=== PATIENT | female | born 1980 | race Caucasian/White ===

== ENCOUNTER 2016-08-01 06:18 | Outpatient (CLI) | payer BC ==
[~2016-08-01] VITALS: Ht 160 cm; Wt 100.2 kg
[2016-08-01] VITALS (7 sets, daily range): BP systolic 116–140; BP diastolic 70–91
[~2016-08-01 06:18] MED LIST: BENADRYL25 MG PO; ENDOCET 5-3251 EACH PO; IBUPROFEN800 MG PO; NOHOMEMEDS; PRENATAL TABLE1 EAC3 PO
[2016-08-01 07:05] LABS: EOSINOPHIL (%) 0 % (0-5); HEMATOCRIT 37.7 % (36.0-46.0); IMMATURE GRANULOCYTE (%) 0.6 % (0.0-0.7); IMMATURE GRANULOCYTE COUNT 0.1 K/uL; INSTRUMENT ABS NEUTROPHIL CT 18.7 K/uL; LYMPHOCYTE COUNT 0.9 K/uL (1.0-2.8); MCH 28.5 PG (29.0-34.0); MCHC 32.6 G/DL (30.0-36.0); MCV 87.3 FL (83-99); MEAN PLAT.VOLUME 12.7 uM^3 (9.5-12.4); MONOCYTE (%) 6.7 % (3-12); MONOCYTE COUNT 1.4 K/uL (0-0.8); NEUTROPHIL (%) 88.4 % (45-76); NEUTROPHIL COUNT 18.7 K/uL (1.8-6.4); PLATELET COUNT 265 K/uL (156-360); RBC DIS.WIDTH-CV 12.6 % (11.8-14.6); RBC DIS.WIDTH-SD 39.8 % (39-53); RED BLOOD COUNT 4.32 M/uL (3.80-5.20); WHITE BLOOD COUNT 21.2 K/uL (4.1-10.2)
[2016-08-01 07:38] LABS: ALKALINE PHOSPHATASE 326 IU/L (3-129); AMYLASE 48 IU/L (1-118); ANION GAP 8 MEQ/L (2-14); CHLORIDE 103 MEQ/L (99-109); GFR ESTIMATE (CALCULATED) > 59 mL/min/; GLUCOSE 109 mg/dL (70-99); LIPASE 34 U/L (1.0-51.0); POTASSIUM 4.2 MEQ/L (3.7-5.4); SAMPLE HEMOLYSIS CHECK 0; SAMPLE ICTERIC CHECK 0; SAMPLE LIPEMIA CHECK 0; SODIUM 130 MEQ/L (136-147); UREA NITROGEN (BUN) 14 mg/dL (9-23)
[2016-08-01 07:40] LABS: TOTAL BILIRUBIN 0.3 MG/DL (0.0-1.0)
[2016-08-01 08:40] LABS: ADD MIUA? YES; BILIRUBIN NEGATIVE; BLOOD NEGATIVE; COLOR YELLOW ((YELLOW)); GLUCOSE (STRIP) NEGATIVE; KETONES NEGATIVE; LEUKOCYTES NEGATIVE; NITRITE NEGATIVE; PROTEIN (STRIP) NEGATIVE; SPECIFIC GRAVITY 1.021 (1.000-1.030); UROBILINOGEN 0.2 MG/DL (0.2-1.0)
[2016-08-01 08:56] LABS: BACTERIA NONE SEEN /HPF; EPITHELIAL CELLS 1+ /HPF; MUCUS TRACE /LPF; RED BLOOD CELLS 0-5 /HPF (0-5); UCUL ADDED? NO; WHITE BLOOD CELLS 0-5 /HPF (0-5)
[2016-08-01 09:02] LABS: AMPHETAMINES QUANT VALUE 0 NG/ML; BARBITUATES QUANT VALUE 0 NG/ML; BENZODIAZEPINES QUANT VALUE 0 NG/ML; BENZODIAZEPINES, URINE SCREEN Negative (200 ng/mL); MARIJUANA QUANT VALUE 0 NG/ML; OPIATES QUANTITATIVE VALUE 0 NG/ML; PHENCYCLIDINE QUANT VALUE 0 NG/ML
[2016-08-01 15:02] LABS: INFLUENZA A VIRAL ANTIGEN NEGATIVE; INFLUENZA B VIRAL ANTIGEN NEGATIVE
[2016-08-02] VITALS (7 sets, daily range): BP systolic 111–125; BP diastolic 68–81
[2016-08-02 08:41] LABS: ALKALINE PHOSPHATASE 248 IU/L (3-129); ANION GAP 9 MEQ/L (2-14); CHLORIDE 106 MEQ/L (99-109); GFR ESTIMATE (CALCULATED) > 59 mL/min/; GLUCOSE 89 mg/dL (70-99); POTASSIUM 4.2 MEQ/L (3.7-5.4); SAMPLE HEMOLYSIS CHECK 0; SAMPLE ICTERIC CHECK 0; SAMPLE LIPEMIA CHECK 0; TOTAL BILIRUBIN 0.3 MG/DL (0.0-1.0); UREA NITROGEN (BUN) 10 mg/dL (9-23)
[2016-08-02 08:49] LABS: SODIUM 139 MEQ/L (136-147)
[2016-08-02 09:05] LABS: EOSINOPHIL (%) 0.1 % (0-5); HEMATOCRIT 35.3 % (36.0-46.0); IMMATURE GRANULOCYTE (%) 0.6 % (0.0-0.7); IMMATURE GRANULOCYTE COUNT 0.1 K/uL; INSTRUMENT ABS NEUTROPHIL CT 8.7 K/uL; LYMPHOCYTE COUNT 1.8 K/uL (1.0-2.8); MCH 28.1 PG (29.0-34.0); MCHC 31.7 G/DL (30.0-36.0); MCV 88.5 FL (83-99); MEAN PLAT.VOLUME 12.6 uM^3 (9.5-12.4); MONOCYTE (%) 5.9 % (3-12); MONOCYTE COUNT 0.7 K/uL (0-0.8); NEUTROPHIL (%) 77.4 % (45-76); NEUTROPHIL COUNT 8.7 K/uL (1.8-6.4); PLATELET COUNT 221 K/uL (156-360); RBC DIS.WIDTH-CV 12.9 % (11.8-14.6); RBC DIS.WIDTH-SD 41.9 % (39-53); RED BLOOD COUNT 3.99 M/uL (3.80-5.20)
[2016-08-02 09:06] LABS: WHITE BLOOD COUNT 11.3 K/uL (4.1-10.2)
[2016-08-03 05:09] VITALS: BP 118/71
[2016-08-03 06:47] VITALS: BP 119/73
[2016-08-03 09:00] VITALS: BP 119/73
[2016-08-03 10:28] VITALS: BP 114/67
[2016-08-03] MEDS ORDERED: DELTASONE20 M1 PO (13:21)
[2016-08-03] MEDS ORDERED: CEFTIN500 MG PO (13:21)
== END 2016-08-03 14:10 | disposition home or self-care (01) ==
LOC: LDRP-OP → EME 06:18 → LDRP-OP 06:19 → 2WEST 06:19 → EDSTATUS 08:18 → EME 12:54 → EDSTATUS 12:58 → 2WEST 13:01
PROVIDERS: Advanced Practice Midwife; Obstetrics & Gynecology
DX: O99.513 Diseases of the respiratory system complicating pregnancy, third trimester (principal); J18.9 Pneumonia, unspecified organism; Z3A.38 38 weeks gestation of pregnancy; O09.523 Supervision of elderly multigravida, third trimester
CPT/HCPCS: 59025; 71010; 71020; 71275; 76705; 80053; 80306 90; 81003; 82150; 83690; 85025; 87040; 87502; 99202; 99281; 99285; G0378; J0456; J0696; J2765; J7050; J7120; J7512

== ENCOUNTER 2016-08-16 08:13 | Inpatient (IN) | payer BC ==
[2016-08-16] VITALS (20 sets, daily range): BP systolic 114–167; BP diastolic 61–98
[~2016-08-16] VITALS: Ht 160 cm; Wt 91.6 kg
[~2016-08-16 08:13] MED LIST changes: +CEFTIN500 MG PO; +DELTASONE20 M1 PO
[2016-08-16] MEDS ORDERED: MUCINEX1200 MG PO (08:40)
[2016-08-16] MEDS ORDERED: BENADRYL25 MG PO (08:40)
[2016-08-16 09:23] LABS: BASOPHIL COUNT 0.1 K/uL (0-0.1); EOSINOPHIL (%) 0.4 % (0-5); HEMATOCRIT 37.8 % (36.0-46.0); IMMATURE GRANULOCYTE (%) 0.5 % (0.0-0.7); INSTRUMENT ABS NEUTROPHIL CT 5.6 K/uL; LYMPHOCYTE COUNT 2.1 K/uL (1.0-2.8); MCH 28.1 PG (29.0-34.0); MCHC 32.5 G/DL (30.0-36.0); MCV 86.3 FL (83-99); MONOCYTE (%) 6.1 % (3-12); MONOCYTE COUNT 0.5 K/uL (0-0.8); NEUTROPHIL COUNT 5.6 K/uL (1.8-6.4); PLATELET COUNT 247 K/uL (156-360); RBC DIS.WIDTH-CV 12.8 % (11.8-14.6); RBC DIS.WIDTH-SD 39.6 % (39-53); RED BLOOD COUNT 4.38 M/uL (3.80-5.20); WHITE BLOOD COUNT 8.4 K/uL (4.1-10.2)
[2016-08-16 09:33] LABS: CHLORIDE 107 mEq/L (99-109); SODIUM 135 mEq/L (136-147)
[2016-08-16 09:36] LABS: GLUCOSE 93 mg/dL (70-99)
[2016-08-16 09:37] LABS: ANION GAP 12 MEQ/L (2-14)
[2016-08-16 09:38] LABS: TOTAL BILIRUBIN 0.2 mg/dL (0.0-1.0)
[2016-08-16 09:39] LABS: ALKALINE PHOSPHATASE 358 IU/L (3-129); GFR ESTIMATE (CALCULATED) > 59 mL/min/
[2016-08-16 09:40] LABS: UREA NITROGEN (BUN) 15 mg/dL (9-23)
[2016-08-16 13:25] LABS: UR CREATININE CONCENTRATION 27.4 MG/DL
[2016-08-16 13:51] LABS: URIC ACID 5.6 mg/dL (3.1-9.2)
[2016-08-16 14:16] LABS: LACTATE DEHYDROGENASE 201 IU/L (20-246)
[2016-08-17] VITALS (10 sets, daily range): BP systolic 118–146; BP diastolic 65–83
[2016-08-17 12:13] LABS: EOSINOPHIL (%) 0.2 % (0-5); HEMATOCRIT 33.8 % (36.0-46.0); IMMATURE GRANULOCYTE (%) 0.3 % (0.0-0.7); INSTRUMENT ABS NEUTROPHIL CT 6.6 K/uL; LYMPHOCYTE COUNT 1.7 K/uL (1.0-2.8); MCH 27.6 PG (29.0-34.0); MCHC 31.7 G/DL (30.0-36.0); MCV 87.3 FL (83-99); MEAN PLAT.VOLUME 11.9 uM^3 (9.5-12.4); MONOCYTE (%) 6.5 % (3-12); MONOCYTE COUNT 0.6 K/uL (0-0.8); NEUTROPHIL (%) 73.3 % (45-76); NEUTROPHIL COUNT 6.6 K/uL (1.8-6.4); PLATELET COUNT 204 K/uL (156-360); RBC DIS.WIDTH-CV 13.2 % (11.8-14.6); RBC DIS.WIDTH-SD 41.1 % (39-53); RED BLOOD COUNT 3.87 M/uL (3.80-5.20); WHITE BLOOD COUNT 8.9 K/uL (4.1-10.2)
[2016-08-18 00:24] VITALS: BP 115/73
[2016-08-18 02:54] VITALS: BP 136/85
[2016-08-18 07:20] VITALS: BP 140/88
[2016-08-18] MEDS ORDERED: IBUPROFEN800 MG PO (12:40)
[2016-08-18] MEDS ORDERED: ENDOCET 5-3251 EACH PO (12:40)
[2016-08-18 14:20] VITALS: BP 135/85
[2016-08-19 07:25] VITALS: BP 119/71
== END 2016-08-19 14:15 | disposition home or self-care (01) | DRG 765 ==
LOC: LDRP-OP 08:13 → 2WEST 08:14 → LDRP-OP 09:13 → 2WEST 23:25 → LDRP-OP 09-08 14:20
PROVIDERS: Obstetrics & Gynecology
PROC: 10907ZC Drainage of Amniotic Fluid, Therapeutic from Products of Conception, Via Natural or Artificial Opening (ICD-10-PCS; principal; 2016-08-16)
PROC: 3E0S3CZ (ICD-10-PCS; principal; 2016-08-16)
PROC: 3E0P7GC Introduction of Other Therapeutic Substance into Female Reproductive, Via Natural or Artificial Opening (ICD-10-PCS; principal; 2016-08-16)
PROC: 00HU33Z Insertion of Infusion Device into Spinal Canal, Percutaneous Approach (ICD-10-PCS; principal; 2016-08-16)
PROC: 10D00Z1 Extraction of Products of Conception, Low, Open Approach (ICD-10-PCS; principal; 2016-08-16)
DX: O13.3 Gestational [pregnancy-induced] hypertension without significant proteinuria, third trimester (principal); O63.9 Long labor, unspecified; O09.523 Supervision of elderly multigravida, third trimester; O99.214 Obesity complicating childbirth; E66.9 Obesity, unspecified; Z68.30 Body mass index [BMI] 30.0-30.9, adult; O69.81X0 Labor and delivery complicated by cord around neck, without compression, not applicable or unspecified; O99.344 Other mental disorders complicating childbirth; O99.52 Diseases of the respiratory system complicating childbirth; O66.41 Failed attempted vaginal birth after previous cesarean delivery; O61.8 Other failed induction of labor; O62.0 Primary inadequate contractions; O62.1 Secondary uterine inertia; O33.9 Maternal care for disproportion, unspecified; Z3A.40 40 weeks gestation of pregnancy; Z37.0 Single live birth; J98.11 Atelectasis; F41.9 Anxiety disorder, unspecified; Z30.2 Encounter for sterilization
CPT/HCPCS: 71020; 80053; 82570; 83615; 84156; 84550; 85025; 86850; 86900; 86901; 88302; C1755; J0690; J2175; J2270; J2274; J2405; J3010; J7120